=== PATIENT | male | born 1990 | race Caucasian/White ===

== ENCOUNTER 2017-03-14 18:30 | Emergency (ER) | payer OTHER ==
[~2017-03-14] VITALS: Ht 188 cm; Wt 116.8 kg
[2017-03-14 18:37] VITALS: BP 127/82
[2017-03-14] MEDS ORDERED: ZOLP5 PO (18:42)
== END 2017-03-14 19:32 | disposition home or self-care (01) ==
LOC: EMS 18:31
DX: R46.89 Other symptoms and signs involving appearance and behavior (principal)
CPT/HCPCS: 99285

== ENCOUNTER 2017-07-04 19:16 | Inpatient (IN) | payer MEDICAID, OTHER ==
[~2017-07-04] VITALS: Ht 188 cm; Wt 80.1 kg
[~2017-07-04 19:16] MED LIST: ZOLP5 PO
[2017-07-04 20:08] LABS: ANION GAP 6 mmol/L (8-16); CALCIUM, TOTAL 8.7 mg/dL (8.8-10.5); CARBON DIOXIDE 30 mmol/L (22-29); CHLORIDE 105 mmol/L (98-107); GLOMERULAR FILTR. RATE CALC > 60 mL/min (>60); POTASSIUM 4.1 mmol/L (3.5-5.1); SODIUM SERUM 141 mmol/L (136-145); UREA NITROGEN, BLOOD 16 mg/dL (7-18)
[2017-07-04 20:16] LABS: ALANINE AMINOTRANSFERASE 33 U/L (12-78); ALBUMIN 3.7 g/dL (3.4-5.0); ASPARTATE AMINOTRANSFERASE 24 U/L (15-37); BASOPHILS % (AUTO) 0.7 % (0.0-2.0); BILIRUBIN,TOTAL 0.1 mg/dL (0.1-1.0); HEMATOCRIT 40.7 % (41-53); HEMOGLOBIN 13.8 g/dL (13.5-17.5); LYMPHOCYTES # (AUTO) 2.2 K/uL (1.0-4.8); LYMPHOCYTES % (AUTO) 36.8 % (22.0-44.0); MEAN CORPUSCULAR HEMOGLOBIN 31.6 pg (26.0-34.0); MEAN CORPUSCULAR VOLUME 93 fL (80-100); MONOCYTES # (AUTO) 0.6 K/uL (0.1-1.0); MONOCYTES % (AUTO) 10.7 % (2.0-9.0); NEUTROPHILS # (AUTO) 2.9 K/uL (1.8-7.7); NEUTROPHILS % (AUTO) 49.8 % (40.0-70.0); PLATELET COUNT (AUTO) 268 K/uL (150-450); RED BLOOD CELL COUNT(AUTO) 4.39 MIL/uL (4.50-5.90); RED CELL DISTRIBUTION WIDTH 14.5 % (11.5-14.5); TOTAL PROTEIN, SERUM 6.8 g/dL (6.4-8.2); WHITE BLOOD COUNT (AUTO) 5.9 K/uL (4.5-11.0)
[2017-07-04] MEDS ORDERED: DiphenhydrAMINE HCL 50 MG/ML VIAL IM ONE (21:00)
[2017-07-04] MEDS ORDERED: LORazepam 2 MG/ML VIAL IM ONE (21:00)
[2017-07-04] MEDS ORDERED: HALOPERIDOL LACTATE 5 MG/ML VIAL IM ONE (21:00)
[2017-07-05 00:01] VITALS: BP 107/65
[2017-07-05 09:00] VITALS: BP 107/60
[2017-07-05] MEDS ORDERED: LORazepam 2 MG/ML VIAL ONE (14:49)
[2017-07-05] MEDS ORDERED: HALOPERIDOL LACTATE 5 MG/ML VIAL ONE (14:49)
[2017-07-05] MEDS ORDERED: DiphenhydrAMINE HCL 50 MG/ML VIAL ONE (14:50)
[2017-07-05] MEDS ORDERED: LORazepam 2 MG/ML VIAL IM ONE (15:00)
[2017-07-05] MEDS ORDERED: HALOPERIDOL LACTATE 5 MG/ML VIAL IM ONE (15:00)
[2017-07-05] MEDS ORDERED: DiphenhydrAMINE HCL 50 MG/ML VIAL IM ONE (15:00)
[2017-07-05 16:25] VITALS: BP 112/64
[2017-07-05] MEDS: LORazepam 1 MG TABLET PO PRN (16:59)
[2017-07-05] MEDS: HALOPERIDOL 5 MG TABLET PO PRN (16:59)
[2017-07-05] MEDS: DIVALPROEX SODIUM 500 MG DR TABLET PO SCH (16:59)
[2017-07-05] MEDS: OLANZapine 5 MG RAPDIS TABLET PO SCH (20:09)
[2017-07-05] MEDS: ZOLPIDEM TARTRATE 10 MG TABLET PO PRN (20:10)
[2017-07-06 06:36] VITALS: BP 102/68
[2017-07-06 08:01] LABS: CHOL/HDL RATIO 2.4 (4.2-7.3); THYROID STIMULATING HORMONE 0.56 uIU/mL (0.36-3.74)
[2017-07-06] MEDS: DIVALPROEX SODIUM 500 MG DR TABLET PO SCH ×2 (09:00→17:38)
[2017-07-06] MEDS: HALOPERIDOL 5 MG TABLET PO PRN ×2 (09:46→17:37)
[2017-07-06] MEDS: LORazepam 1 MG TABLET PO PRN ×2 (09:46→17:37)
[2017-07-06] MEDS ORDERED: LORazepam 2 MG/ML VIAL ONE (15:09)
[2017-07-06] MEDS ORDERED: DiphenhydrAMINE HCL 50 MG/ML VIAL ONE (15:09)
[2017-07-06] MEDS ORDERED: HALOPERIDOL LACTATE 5 MG/ML VIAL ONE (15:09)
[2017-07-06] MEDS ORDERED: DiphenhydrAMINE HCL 50 MG/ML VIAL IM ONE (15:15)
[2017-07-06] MEDS ORDERED: HALOPERIDOL LACTATE 5 MG/ML VIAL IM ONE (15:15)
[2017-07-06] MEDS ORDERED: LORazepam 2 MG/ML VIAL IM ONE (15:15)
[2017-07-06 16:31] VITALS: BP 114/73
[2017-07-06] MEDS: ZOLPIDEM TARTRATE 10 MG TABLET PO PRN (20:06)
[2017-07-06] MEDS: OLANZapine 5 MG RAPDIS TABLET PO SCH (20:06)
[2017-07-07 06:31] VITALS: BP 109/65
[2017-07-07 08:31] VITALS: BP 115/66
[2017-07-07] MEDS: HALOPERIDOL 5 MG TABLET PO PRN ×2 (08:42→17:13)
[2017-07-07] MEDS: LORazepam 1 MG TABLET PO PRN ×2 (08:42→17:12)
[2017-07-07] MEDS: DIVALPROEX SODIUM 500 MG DR TABLET PO SCH ×3 (08:42→17:12)
[2017-07-07 16:07] VITALS: BP 113/72
[2017-07-07] MEDS: OLANZapine 5 MG RAPDIS TABLET PO SCH (20:38)
[2017-07-07] MEDS: ZOLPIDEM TARTRATE 10 MG TABLET PO PRN (20:38)
[2017-07-08 04:31] VITALS: BP 111/63
[2017-07-08] MEDS: LORazepam 1 MG TABLET PO PRN ×2 (08:27→16:10)
[2017-07-08] MEDS: DIVALPROEX SODIUM 500 MG DR TABLET PO SCH ×2 (08:27→16:10)
[2017-07-08] MEDS: HALOPERIDOL 5 MG TABLET PO PRN ×2 (08:27→16:10)
[2017-07-08 08:41] VITALS: BP 108/67
[2017-07-08 16:00] VITALS: BP 120/74
[2017-07-08] MEDS: OLANZapine 5 MG RAPDIS TABLET PO SCH (20:19)
[2017-07-09 03:10] VITALS: BP 106/74
[2017-07-09 08:18] VITALS: BP 112/70
[2017-07-09] MEDS: DIVALPROEX SODIUM 500 MG DR TABLET PO SCH ×2 (08:29→16:14)
[2017-07-09] MEDS: LORazepam 1 MG TABLET PO PRN ×2 (08:29→16:14)
[2017-07-09] MEDS: HALOPERIDOL 5 MG TABLET PO PRN ×2 (08:29→16:14)
[2017-07-09] MEDS ORDERED: IBUPROFEN 600 MG TABLET PO PRN (11:15)
[2017-07-09] MEDS ORDERED: ACETAMINOPHEN 325 MG TABLET PO PRN (11:15)
[2017-07-09 16:00] VITALS: BP 114/68
[2017-07-09] MEDS ORDERED: ONDANSETRON HCL 4 MG TABLET PO PRN (20:00)
[2017-07-09] MEDS: PANTOPRAZOLE SODIUM 40 MG DR TABLET PO SCH (20:14)
[2017-07-09] MEDS: OLANZapine 5 MG RAPDIS TABLET PO SCH (20:14)
[2017-07-10 00:24] VITALS: BP 112/66
[2017-07-10 08:19] VITALS: BP 113/72
[2017-07-10] MEDS: PANTOPRAZOLE SODIUM 40 MG DR TABLET PO SCH ×2 (08:21→16:43)
[2017-07-10] MEDS: DIVALPROEX SODIUM 500 MG DR TABLET PO SCH ×2 (08:21→16:43)
[2017-07-10 08:22] LABS: BASOPHILS % (AUTO) 0.6 % (0.0-2.0); EOSINOPHILS % (AUTO) 2.3 % (1.0-6.0); HEMATOCRIT 42.5 % (41-53); HEMOGLOBIN 14.4 g/dL (13.5-17.5); LYMPHOCYTES # (AUTO) 2.1 K/uL (1.0-4.8); MEAN CORPUSCULAR HEMOGLOBIN 31.6 pg (26.0-34.0); MEAN CORPUSCULAR HGB CONC 33.9 G/dL (31.0-37.0); MEAN CORPUSCULAR VOLUME 93 fL (80-100); MONOCYTES # (AUTO) 0.5 K/uL (0.1-1.0); MONOCYTES % (AUTO) 9.5 % (2.0-9.0); NEUTROPHILS # (AUTO) 2.7 K/uL (1.8-7.7); NEUTROPHILS % (AUTO) 49.6 % (40.0-70.0); PLATELET COUNT (AUTO) 307 K/uL (150-450); RED BLOOD CELL COUNT(AUTO) 4.57 MIL/uL (4.50-5.90); RED CELL DISTRIBUTION WIDTH 14.4 % (11.5-14.5); WHITE BLOOD COUNT (AUTO) 5.5 K/uL (4.5-11.0)
[2017-07-10] MEDS: LORazepam 1 MG TABLET PO PRN ×4 (08:29→20:11)
[2017-07-10] MEDS: HALOPERIDOL 5 MG TABLET PO PRN (08:40)
[2017-07-10 08:48] LABS: ALANINE AMINOTRANSFERASE 34 U/L (12-78); ALBUMIN 3.4 g/dL (3.4-5.0); AMYLASE 49 U/L (25-115); ANION GAP 4 mmol/L (8-16); ASPARTATE AMINOTRANSFERASE 24 U/L (15-37); BILIRUBIN,TOTAL 0.1 mg/dL (0.1-1.0); CARBON DIOXIDE 34 mmol/L (22-29); CHLORIDE 105 mmol/L (98-107); CREATININE 0.78 mg/dL (0.60-1.30); GLOMERULAR FILTR. RATE CALC > 60 mL/min (>60); POTASSIUM 4.4 mmol/L (3.5-5.1); SODIUM SERUM 143 mmol/L (136-145); TOTAL PROTEIN, SERUM 6.7 g/dL (6.4-8.2); UREA NITROGEN, BLOOD 12 mg/dL (7-18)
[2017-07-10 16:12] VITALS: BP 113/68
[2017-07-10] MEDS: ZOLPIDEM TARTRATE 10 MG TABLET PO PRN (20:11)
[2017-07-10] MEDS: OLANZapine 5 MG RAPDIS TABLET PO SCH (20:11)
[2017-07-10] MEDS ORDERED: DiphenhydrAMINE HCL 50 MG/ML VIAL ONE (23:21)
[2017-07-10] MEDS ORDERED: HALOPERIDOL LACTATE 5 MG/ML VIAL ONE (23:21)
[2017-07-10] MEDS ORDERED: LORazepam 2 MG/ML VIAL ONE (23:21)
[2017-07-10] MEDS ORDERED: DiphenhydrAMINE HCL 50 MG/ML VIAL IM ONE (23:30)
[2017-07-10] MEDS ORDERED: LORazepam 2 MG/ML VIAL IM ONE (23:30)
[2017-07-10] MEDS ORDERED: HALOPERIDOL LACTATE 5 MG/ML VIAL IM ONE (23:30)
[2017-07-11 07:05] VITALS: BP 120/70
[2017-07-11 08:06] VITALS: BP 138/60
[2017-07-11] MEDS: PANTOPRAZOLE SODIUM 40 MG DR TABLET PO SCH ×2 (08:32→16:56)
[2017-07-11] MEDS: LORazepam 1 MG TABLET PO PRN ×2 (08:32→16:57)
[2017-07-11] MEDS: DIVALPROEX SODIUM 500 MG DR TABLET PO SCH ×2 (08:32→16:57)
[2017-07-11 16:29] VITALS: BP 130/64
[2017-07-11] MEDS: HALOPERIDOL 5 MG TABLET PO PRN (16:57)
[2017-07-11] MEDS: ZOLPIDEM TARTRATE 10 MG TABLET PO PRN (20:24)
[2017-07-11] MEDS: OLANZapine 5 MG RAPDIS TABLET PO SCH (20:24)
[2017-07-12 05:39] VITALS: BP 133/78
[2017-07-12 08:21] VITALS: BP 116/74
[2017-07-12] MEDS: DIVALPROEX SODIUM 500 MG DR TABLET PO SCH ×2 (09:09→17:01)
[2017-07-12] MEDS: LORazepam 1 MG TABLET PO PRN ×2 (09:09→17:01)
[2017-07-12] MEDS: HALOPERIDOL 5 MG TABLET PO PRN ×2 (09:09→17:01)
[2017-07-12] MEDS: PANTOPRAZOLE SODIUM 40 MG DR TABLET PO SCH ×2 (09:09→17:01)
[2017-07-12 16:00] VITALS: BP 114/68
[2017-07-12] MEDS: OLANZapine 5 MG RAPDIS TABLET PO SCH (20:19)
[2017-07-13 04:07] VITALS: BP 119/68
[2017-07-13 08:22] VITALS: BP 112/76
[2017-07-13] MEDS: DIVALPROEX SODIUM 500 MG DR TABLET PO SCH ×2 (08:48→16:14)
[2017-07-13] MEDS: LORazepam 1 MG TABLET PO PRN ×2 (08:48→16:14)
[2017-07-13] MEDS: HALOPERIDOL 5 MG TABLET PO PRN ×2 (08:48→16:14)
[2017-07-13] MEDS: PANTOPRAZOLE SODIUM 40 MG DR TABLET PO SCH ×2 (08:48→16:14)
[2017-07-13 16:00] VITALS: BP 116/66
[2017-07-13] MEDS: OLANZapine 5 MG RAPDIS TABLET PO SCH (20:13)
[2017-07-14 06:38] VITALS: BP 115/78
[2017-07-14 08:17] VITALS: BP 103/60
[2017-07-14] MEDS: LORazepam 1 MG TABLET PO PRN ×2 (09:12→16:09)
[2017-07-14] MEDS: PANTOPRAZOLE SODIUM 40 MG DR TABLET PO SCH ×2 (09:12→16:09)
[2017-07-14] MEDS: DIVALPROEX SODIUM 500 MG DR TABLET PO SCH ×2 (09:12→16:09)
[2017-07-14] MEDS: HALOPERIDOL 5 MG TABLET PO PRN ×2 (09:13→16:09)
[2017-07-14 16:00] VITALS: BP 122/72
[2017-07-14] MEDS: OLANZapine 5 MG RAPDIS TABLET PO SCH (20:48)
[2017-07-15 06:22] VITALS: BP 125/82
[2017-07-15 08:05] VITALS: BP 104/60
[2017-07-15] MEDS: HALOPERIDOL 5 MG TABLET PO PRN ×2 (09:39→17:19)
[2017-07-15] MEDS: PANTOPRAZOLE SODIUM 40 MG DR TABLET PO SCH ×2 (09:39→17:19)
[2017-07-15] MEDS: DIVALPROEX SODIUM 500 MG DR TABLET PO SCH ×2 (09:39→17:18)
[2017-07-15] MEDS: LORazepam 1 MG TABLET PO PRN ×2 (09:39→17:19)
[2017-07-15 16:00] VITALS: BP 113/67
[2017-07-15] MEDS ORDERED: OLAN5TAB40 PO (21:06)
[2017-07-15] MEDS ORDERED: DIVA500T35 PO (21:07)
[2017-07-15] MEDS ORDERED: PANT40TA25 PO (21:08)
[2017-07-15] MEDS: OLANZapine 5 MG RAPDIS TABLET PO SCH (21:17)
[2017-07-15] MEDS: ZOLPIDEM TARTRATE 10 MG TABLET PO PRN (21:18)
[2017-07-16 06:27] VITALS: BP 109/67
== END 2017-07-16 07:15 | disposition home or self-care (01) | DRG 751 ==
LOC: EMS 19:19 → B2S 21:06 → B3A 07-05 15:15
PROVIDERS: ADMIT Psychiatry & Neurology Psychiatry; ATTEND Psychiatry & Neurology Child & Adolescent Psychiatry
DX: F23 Brief psychotic disorder (principal); F15.10 Other stimulant abuse, uncomplicated; F12.10 Cannabis abuse, uncomplicated; R10.9 Unspecified abdominal pain; Z59.0 Homelessness; Z79.899 Other long term (current) drug therapy; Z83.3 Family history of diabetes mellitus; Z83.49 Family history of other endocrine, nutritional and metabolic diseases
CPT/HCPCS: 84443; 96372; 99285; G0480; J1200; J1630; J2060; Q0162